=== PATIENT | male | born 1945 | race Caucasian/White ===

== ENCOUNTER 2019-02-02 23:00 | Emergency (ER) | payer MEDICARE, OTHER ==
[2019-02-02] MEDS ORDERED: Bacitracin Oint 1 GM U/D Packet TOP ONE (23:23)
[2019-02-02] MEDS ORDERED: Lidocaine 1% 30 ML SDV INJECT ONE (23:23)
--- NOTE | 2019-02-02 23:26 | EDM.PDOC ---
ED HPI GENERAL MEDICAL PROBLEM - General Chief Complaint: Skin Complaint Stated Complaint: STITCHES BUSTED OPEN RIGHT ELBOW Time Seen by Provider: 02/02/19 23:20 Source of Information: Reports: Patient History Limitations: Reports: No Limitations - History of Present Illness INITIAL COMMENTS - FREE TEXT/NARRATIVE: This 73 yo male patient reports to the with a right elbow laceration. The patient reports he had elbow surgery 3 weeks ago, had his stitches taken out 1 week ago and opened up the surgical wound this evening while crawling into bed. No profuse bleeding at this time. Onset: Today Duration: Minutes: Location: Reports: Upper Extremity, Right Quality: Reports: Other Severity: Mild Improves with: Reports: None Worsens with: Reports: None Context: Reports: Activity Associated Symptoms: Reports: No Other Symptoms - Related Data Allergies Allergy/AdvReac Type Severity Reaction Status Date / Time No Known Allergies Allergy Verified 02/02/19 23:13 Home Meds: Home Meds . [Unable to Verify Home Med List] 02/02/19 [History] ED ROS GENERAL - Review of Systems Review Of Systems: ROS reveals no pertinent complaints other than HPI. ED EXAM, SKIN/RASH Exam: See Below Exam Limited By: No Limitations General Appearance: Alert, WD/WN, No Apparent Distress Eye Exam: Bilateral Eye: EOMI, Normal Inspection, PERRL Ears: Normal External Exam, Normal Canal, Hearing Grossly Normal, Normal TMs Nose: Normal Inspection, Normal Mucosa, No Blood Throat/Mouth: Normal Inspection, Normal Lips, Normal Teeth, Normal Gums, Normal Oropharynx, Normal Voice, No Airway Compromise Head: Atraumatic, Normocephalic Neck: Normal Inspection, Supple, Non-Tender, Full Range of Motion Respiratory/Chest: No Respiratory Distress, Lungs Clear, Normal Breath Sounds, No Accessory Muscle Use, Chest Non-Tender Cardiovascular: Normal Peripheral Pulses, Regular Rate, Rhythm, No Edema, No Gallop, No JVD, No Murmur, No Rub GI/Abdominal: Normal Bowel Sounds, Soft, Non-Tender, No Organomegaly, No Distention, No Abnormal Bruit, No Mass (Male) Exam: Deferred Rectal (Males) Exam: Deferred Back Exam: Normal Inspection, Full Range of Motion, NT Extremities: Normal Inspection, Normal Range of Motion, Non-Tender, No Pedal Edema, Normal Capillary Refill Neurological: Alert, Oriented, CN II-XII Intact, Normal Cognition, Normal Gait, Normal Reflexes, No Motor/Sensory Deficits Psychiatric: Normal Affect, Normal Mood Skin: Warm, Dry, Normal Color, No Rash, Wound/Incision Location, Skin: Upper Extremity, Right Characteristics: Linear Lymphatic: No Adenopathy ED SKIN PROCEDURES - Laceration/Wound Repair Right Elbow Lac/Wound length In cm: 3.5 Appearance: Subcutaneous Distal NVT: Neuro & Vascular Intact Anesthetic Type: Local Local Anesthesia - Lidocaine (Xylocaine): 1% Plain Local Anesthetic Volume: 3cc Skin Prep: Chlorhexidine (Hibiciens), Saline Exploration/Debridement/Repair: Wound Explored, No Foreign Material Found Closed with: Sutures Suture Size: 3-0 # of Sutures: 7 Suture Type: Prolene, Interrupted, Mattress Drain Placement: No Sterile Dressing Applied: Nurse Tetanus Status Addressed: Yes Complications: No Course - Vital Signs Last Recorded V/S: Last Vital Signs Temp 37.7 C 02/02/19 23:09 Pulse 88 02/02/19 23:09 Resp 20 02/02/19 23:09 BP 112/46 L 02/02/19 23:09 Pulse Ox 96 02/02/19 23:09 - Orders/Labs/Meds Meds: Medications Discontinued Medications Generic Name Dose Route Start Last Admin Trade Name Dandy PRN Reason Stop Dose Admin Bacitracin 1 dose 02/02/19 23:23 02/02/19 23:28 Bacitracin Oint 1 Gm TOP 02/02/19 23:24 1 dose ONETIME ONE Administration Lidocaine HCl 30 ml 02/02/19 23:23 02/02/19 23:28 Xylocaine-Mpf 1% INJECT 02/02/19 23:24 30 ml ONETIME ONE Administration Departure - Departure Time of Disposition: 23:49 Disposition: Home, Self-Care 01 Condition: Fair Clinical Impression: Laceration of right elbow Qualifiers: Encounter type: initial encounter Qualified Code(s): S51.011A - Laceration without foreign body of right elbow, initial encounter - Discharge Information *PRESCRIPTION DRUG MONITORING PROGRAM REVIEWED*: Not Applicable *COPY OF PRESCRIPTION DRUG MONITORING REPORT IN PATIENT [place]: Not Applicable Instructions: Laceration Care, Adult, [id number], Stitches, Jamshid, or Adhesive Wound Closure, [id number] Forms: ED Department Discharge Care Plan Goals: The patient and his were advised of the examination results during the visit. The wound margins were well approximated during the visit. The patient should have the sutures removed in approximately 14 days. The patient should keep the area clean and dry over the next 24 hours. The patient was given an oral dose of Keflex while in the ED. The patient was discharged with a script for Keflex (500 mg) to take 1 by mouth 3 times per day for 10 days. If the patient has any additional symptoms or concerns, the patient should either return to the emergency department or visit his primary care facility. The patient was also instructed to LISTEN TO HIS !!
[2019-02-02] MEDS ORDERED: Cephalexin 500 MG Cap PO ONE (23:49)
== END 2019-02-03 00:03 | disposition home or self-care (01) ==
LOC: DL.ED 23:00
DX: S51.011A Laceration without foreign body of right elbow, initial encounter (principal); X58.XXXA Exposure to other specified factors, initial encounter
CPT/HCPCS: 12002; 99282; A9270; J2001